=== PATIENT | female | born 1955 | race Caucasian/White ===

== ENCOUNTER → 2018-02-03 | Outpatient (CLI) | payer BC | END | disposition home or self-care (01) | LOC: LAB EV 08:23 → LAB SHORT 08:23 | DX: H10.31 Unspecified acute conjunctivitis, right eye (principal) | CPT/HCPCS: 87070; 87186; 87205 ==

== ENCOUNTER 2018-05-23 11:41 | Day surgery (SDC) | payer BC ==
[~2018-05-23] VITALS: Ht 154.9 cm; Wt 64.5 kg
[2018-05-23] MEDS ORDERED: ASCO500 (12:22)
[2018-05-23] MEDS ORDERED: OMEG1CAP30 (12:22)
[2018-05-23] MEDS ORDERED: SERT100 (12:23)
== END 2018-05-23 13:52 | disposition home or self-care (01) ==
LOC: ORSCSDS 11:41
PROVIDERS: Internal Medicine Gastroenterology
PROC: 0DBC8ZX Excision of Ileocecal Valve, Via Natural or Artificial Opening Endoscopic, Diagnostic (ICD-10-PCS; principal; 2018-05-23 13:00)
DX: Z12.11 Encounter for screening for malignant neoplasm of colon (principal); D12.0 Benign neoplasm of cecum; K57.30 Diverticulosis of large intestine without perforation or abscess without bleeding; N81.6 Rectocele; F32.9 Major depressive disorder, single episode, unspecified; Z79.899 Other long term (current) drug therapy
CPT/HCPCS: 88305; J7120

== ENCOUNTER → 2023-10-02 | Outpatient (CLI) | payer OTHER ==
[~2023-10-02] MED LIST: ASCO500; OMEG1CAP30; SERT100
== END | disposition home or self-care (01) ==
LOC: LAB 13:27 → LAB SHORT 13:27
DX: L44.8 Other specified papulosquamous disorders (principal)
CPT/HCPCS: 87220

== ENCOUNTER → 2023-11-07 | Outpatient (CLI) | payer OTHER | LOC: LAB 13:53 → LAB SHORT 13:53 | DX: L44.8 Other specified papulosquamous disorders (principal) | CPT/HCPCS: 87070; 87077; 87147; 87186; 87205 ==